=== PATIENT | male | born 1975 | race Asian ===

== ENCOUNTER 2016-11-13 11:26 | Emergency (ER) | payer OTHER ==
[~2016-11-13] VITALS: Ht 180.3 cm; Wt 136.4 kg
[~2016-11-13 11:26] MED LIST: ALLO300 PO; CARV6 PO; FOLI1TAB15 PO; FURO20 PO; LISI-661 PO; SPIR25 PO
[2016-11-13] MEDS ORDERED: RIVA20TA PO (11:33)
[2016-11-13] MEDS ORDERED: COLCHICINE 0.6 MG TABLET PO ONE (13:15)
[2016-11-13] MEDS ORDERED: TraMADol HCL 50 MG TABLET PO ONE (13:45)
[2016-11-13 13:58] VITALS: BP 127/71
== END 2016-11-13 14:37 | disposition home or self-care (01) ==
LOC: EMS 11:28
DX: M25.561 Pain in right knee (principal); M10.9 Gout, unspecified; I11.0 Hypertensive heart disease with heart failure; I50.9 Heart failure, unspecified; F17.210 Nicotine dependence, cigarettes, uncomplicated
CPT/HCPCS: 99283

== ENCOUNTER 2017-06-06 10:37 | Emergency (ER) | payer SELFPAY ==
[~2017-06-06] VITALS: Ht 180.3 cm; Wt 122.7 kg
[~2017-06-06 10:37] MED LIST changes: +RIVA20TA PO
[2017-06-06 11:04] VITALS: BP 150/73
[2017-06-06 11:27] LABS: INFLUENZA TYPE B NEGATIVE FOR TYPE B (NEGATIVE)
== END 2017-06-06 12:02 | disposition home or self-care (01) ==
LOC: EMS 10:38
DX: K52.9 Noninfective gastroenteritis and colitis, unspecified (principal); F17.210 Nicotine dependence, cigarettes, uncomplicated; I11.0 Hypertensive heart disease with heart failure; I50.9 Heart failure, unspecified; M10.9 Gout, unspecified
CPT/HCPCS: 87804; 99284

== ENCOUNTER 2017-06-16 23:37 | Emergency (ER) | payer SELFPAY ==
[~2017-06-16] VITALS: Ht 180.3 cm; Wt 122.7 kg
[~2017-06-16 23:37] MED LIST changes: -FURO20 PO
[2017-06-17] MEDS ORDERED: BUPIVACAINE HCL/PF 0.25% 10 ML VIAL INJ ONE (01:15)
[2017-06-17 01:22] VITALS: BP 112/64
[2017-06-17] MEDS ORDERED: PERTUSS(ACELL),DIPH,TET VAC/PF 0.5 ML VIAL IM ONE (01:45)
== END 2017-06-17 01:50 | disposition home or self-care (01) ==
LOC: EMS 23:38
DX: S61.412A Laceration without foreign body of left hand, initial encounter (principal); I11.0 Hypertensive heart disease with heart failure; I50.9 Heart failure, unspecified; J40 Bronchitis, not specified as acute or chronic; F17.210 Nicotine dependence, cigarettes, uncomplicated; W25.XXXA Contact with sharp glass, initial encounter; Y93.G1 Activity, food preparation and clean up; Y92.89 Other specified places as the place of occurrence of the external cause; Y99.8 Other external cause status
CPT/HCPCS: 12002; 90715; 99283; 99406; J3490